=== PATIENT | male | born 1930 | race Caucasian/White ===

== ENCOUNTER 2016-09-04 14:37 | Emergency (ER) | payer MEDICARE ==
[~2016-09-04] VITALS: Ht 167.6 cm; Wt 74.4 kg
[2016-09-04 15:01] VITALS: BP 187/95
== END 2016-09-04 16:41 | disposition home or self-care (01) ==
LOC: ER 14:41
DX: S40.812A Abrasion of left upper arm, initial encounter (principal); I10 Essential (primary) hypertension; I45.9 Conduction disorder, unspecified; C41.9 Malignant neoplasm of bone and articular cartilage, unspecified; W18.30XA Fall on same level, unspecified, initial encounter; Y93.89 Activity, other specified; Y92.89 Other specified places as the place of occurrence of the external cause; Y99.8 Other external cause status
CPT/HCPCS: 99281; A4606; Z7502; Z7610

== ENCOUNTER 2016-09-14 13:26 | Outpatient (CLI) | payer MEDICARE ==
[~2016-09-14] VITALS: Ht 167.6 cm; Wt 74.4 kg
[2016-09-14 13:47] VITALS: BP_SYST 140; BP_SYST 148; BP_DIAS 70
[2016-09-14 15:19] LABS: BASOPHILS # (AUTO) 0.1 /CMM (0.0-0.2); BASOPHILS % (AUTO) 1.4 % (0.0-2.0); DIFF TOTAL % 100 %; EOSINOPHILS # (AUTO) 0.1 /CMM (0.0-0.7); EOSINOPHILS % (AUTO) 2.3 % (0.0-6.0); HEMATOCRIT 41 % (39-51); HEMOGLOBIN 13.3 g/dL (13.5-17.5); LYMPHOCYTES # (AUTO) 1.4 /CMM (0.8-4.8); LYMPHOCYTES % (AUTO) 35.3 % (20.0-44.0); MEAN CORPUSCULAR HEMOGLOBIN 30 PG (26.0-33.0); MEAN CORPUSCULAR HGB CONC 33 g/dl (31.0-36.0); MEAN CORPUSCULAR VOLUME 91 fL (80-96); MONOCYTES # (AUTO) 0.5 /CMM (0.1-1.30); MONOCYTES % (AUTO) 11.7 % (2.0-12.0); NEUTROPHILS % (AUTO) 49.3 % (43.0-81.0); PLATELET COUNT (AUTO) 268 /CMM (150-450); RED BLOOD CELL COUNT(AUTO) 4.47 MIL/uL (4.5-6.0)
[2016-09-14 15:54] LABS: ALBUMIN 4.3 g/dL (3.4-5.0); BILIRUBIN,TOTAL 0.3 mg/dL (0.2-1.0); CALCIUM, SERUM 9.3 mg/dL (8.5-10.1); CREATININE 1.2 mg/dL (0.6-1.3); POTASSIUM 4.8 mmol/L (3.5-5.1); THYROID STIMULATING HORMONE 3.134 uIU/mL (0.358-3.74)
== END 2016-09-14 23:59 | disposition home or self-care (01) ==
LOC: CSC 13:26
PROVIDERS: ATTEND Internal Medicine
DX: R07.9 Chest pain, unspecified (principal); Z74.09 Other reduced mobility
CPT/HCPCS: 36415; 80048; 80053; 82607; 84443 ×2; 85025 ×2; G0463

== ENCOUNTER 2016-09-18 14:15 | Outpatient (CLI) | payer MEDICARE | END 2016-09-18 23:59 | disposition home or self-care (01) | LOC: WOU 14:15 | PROVIDERS: ATTEND Podiatrist Foot & Ankle Surgery | DX: L60.3 Nail dystrophy (principal); L60.0 Ingrowing nail; R60.0 Localized edema | CPT/HCPCS: A6402; G0463 ==

== ENCOUNTER 2016-09-19 10:24 | Outpatient (CLI) | payer MEDICARE | END 2016-09-19 23:59 | disposition home or self-care (01) | LOC: RAD 10:24 | PROVIDERS: ATTEND Internal Medicine | DX: R07.81 Pleurodynia (principal) | CPT/HCPCS: 71020-TC ==

== ENCOUNTER 2016-09-28 14:02 | Outpatient (CLI) | payer MEDICARE ==
[~2016-09-28] VITALS: Ht 168.9 cm; Wt 73.0 kg
[2016-09-28 14:05] VITALS: BP_SYST 158; BP_SYST 159; BP_DIAS 71; BP_DIAS 80
== END 2016-09-28 23:59 | disposition home or self-care (01) ==
LOC: CSC 14:02
PROVIDERS: ATTEND Internal Medicine
DX: R41.3 Other amnesia (principal); Z87.891 Personal history of nicotine dependence; R07.81 Pleurodynia; Z91.14 Patient's other noncompliance with medication regimen; L21.9 Seborrheic dermatitis, unspecified; L57.0 Actinic keratosis; B35.1 Tinea unguium; I25.10 Atherosclerotic heart disease of native coronary artery without angina pectoris; Z98.61 Coronary angioplasty status; E78.5 Hyperlipidemia, unspecified; G62.9 Polyneuropathy, unspecified; N39.41 Urge incontinence; M19.90 Unspecified osteoarthritis, unspecified site; I10 Essential (primary) hypertension; H54.2 Low vision, both eyes; Z91.81 History of falling; B02.9 Zoster without complications
CPT/HCPCS: 80048; 80061; 83036; 83540; 85025; G0463

== ENCOUNTER 2016-10-03 08:51 | Outpatient (CLI) | payer MEDICARE | END 2016-10-03 23:59 | disposition home or self-care (01) | LOC: US 08:51 | PROVIDERS: ATTEND Internal Medicine | DX: R10.11 Right upper quadrant pain (principal) | CPT/HCPCS: 76700-TC ==

== ENCOUNTER 2016-10-12 13:41 | Outpatient (CLI) | payer MEDICARE ==
[~2016-10-12] VITALS: Ht 168.9 cm; Wt 73.9 kg
[2016-10-12 13:51] VITALS: BP_SYST 162; BP_SYST 173; BP_DIAS 86; BP_DIAS 98
== END 2016-10-12 23:59 | disposition home or self-care (01) ==
LOC: CSC 13:41
PROVIDERS: ATTEND Internal Medicine
DX: F01.50 Vascular dementia, unspecified severity, without behavioral disturbance, psychotic disturbance, mood disturbance, and anxiety (principal); Z91.81 History of falling; N39.41 Urge incontinence; R35.1 Nocturia; H26.9 Unspecified cataract; I10 Essential (primary) hypertension; B02.9 Zoster without complications; M19.90 Unspecified osteoarthritis, unspecified site; G62.9 Polyneuropathy, unspecified; I45.9 Conduction disorder, unspecified; E78.5 Hyperlipidemia, unspecified; R01.1 Cardiac murmur, unspecified; I25.10 Atherosclerotic heart disease of native coronary artery without angina pectoris; Z98.61 Coronary angioplasty status; B35.1 Tinea unguium; L57.0 Actinic keratosis; L21.9 Seborrheic dermatitis, unspecified; R07.81 Pleurodynia; R10.9 Unspecified abdominal pain; Z91.128 Patient's intentional underdosing of medication regimen for other reason
CPT/HCPCS: G0463

== ENCOUNTER 2017-12-27 15:10 | Inpatient (IN) | payer MEDICARE ==
[~2017-12-27] VITALS: Ht 160 cm; Wt 76.7 kg
--- NOTE | 2017-12-27 15:10 | NUR ---
JANETTE FROM [facility] OAU=[id number]; CR=14.7; K=6.2 MZ=[id number]; REFUSAL TO EAT. PLACED ON MONITOR.AWAITING MD ORDER
[2017-12-27 15:58] LABS: BASOPHILS % (AUTO) 0.4 % (0.0-2.0); EOSINOPHILS % (AUTO) 6.3 % (0.0-6.0); HEMATOCRIT 28 % (39-51); HEMOGLOBIN 9.5 g/dL (13.5-17.5); LYMPHOCYTES # (AUTO) 1.4 /CMM (0.8-4.8); MEAN CORPUSCULAR HGB CONC 34 g/dl (31.0-36.0); MEAN CORPUSCULAR VOLUME 92 fL (80-96); MONOCYTES # (AUTO) 0.4 /CMM (0.1-1.30); NEUTROPHILS # (AUTO) 6.5 /CMM (1.8-8.9); NEUTROPHILS % (AUTO) 72.3 % (43.0-81.0); PLATELET COUNT (AUTO) 168 /CMM (150-450); RED BLOOD CELL COUNT(AUTO) 3.08 MIL/uL (4.5-6.0)
[2017-12-27] MEDS ORDERED: IV NS 0.9% 1,000 ML BAG IV ONE (16:00)
[2017-12-27 16:11] LABS: CALCIUM, SERUM 8.4 mg/dL (8.5-10.1); CARBON DIOXIDE 18 mmol/L (21-32); CHLORIDE 107 mmol/L (98-107); GLUCOSE 138 mg/dL (74-106); SODIUM SERUM 142 mmol/L (136-145)
[2017-12-27 16:32] LABS: CREATININE 20.1 mg/dL (0.6-1.3); UREA NITROGEN, BLOOD 142 mg/dL (7-18)
[2017-12-27 16:33] LABS: POTASSIUM 6.4 mmol/L (3.5-5.1)
[2017-12-27] MEDS ORDERED: QUET25TA PO (16:44)
[2017-12-27] MEDS ORDERED: AMIO100T4 PO (16:44)
[2017-12-27] MEDS ORDERED: ATOR40TA PO (16:56)
[2017-12-27] MEDS ORDERED: ACET325T53 MC (16:56)
[2017-12-27] MEDS ORDERED: ASCO500T9 PO (16:56)
[2017-12-27] MEDS ORDERED: ASPI-992 PO (16:56)
[2017-12-27] MEDS ORDERED: CLON0.5T12 PO (16:56)
[2017-12-27] MEDS ORDERED: TEMA15CA PO (16:56)
[2017-12-27] MEDS ORDERED: MULT1TAB73 PO (16:56)
[2017-12-27] MEDS ORDERED: MAGN400O21 PO (16:56)
[2017-12-27] MEDS ORDERED: LOSA25TA13 PO (16:56)
[2017-12-27] MEDS ORDERED: SODIUM POLYSTYRENE SULFONATE 15 G/60 ML BOTTLE RC ONE (17:00)
[2017-12-27] MEDS ORDERED: IV NS 0.9% 1,000 ML IV ONE (17:00)
[2017-12-27] MEDS ORDERED: SODIUM POLYSTYRENE SULFONATE 15 G/60 ML BOTTLE ONE (17:11)
--- NOTE | 2017-12-27 17:25 | NUR ---
GAVE REPORT TO ADONIS LINSUDON FAILURE TO THRIVE DR THAO ADMITTING
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
[2017-12-27 18:00] VITALS: BP 102/57
[2017-12-27] MEDS ORDERED: ONDANSETRON HCL/PF 4 MG/2 ML VIAL IVP PRN (18:00)
[2017-12-27] MEDS ORDERED: MAGNESIUM HYDROXIDE 30 ML UDC PO PRN (18:00)
[2017-12-27] MEDS ORDERED: ACETAMINOPHEN 325 MG TABLET PO PRN (18:00)
[2017-12-27] MEDS ORDERED: MAG HYDROX/AL HYDROX/SIMETH 30 ML UDC PO PRN (18:00)
[2017-12-27] MEDS ORDERED: HYDROCODONE/APAP 5/325MG 1 EACH TABLET PO PRN (18:00)
[2017-12-27] MEDS ORDERED: Z GUARD REMEDY 2 OZ OINT TP PRN (18:00)
[2017-12-27] MEDS: IV D5/0.45 NACL 1,000 ML IV PRN (18:24)
--- NOTE | 2017-12-27 19:41 | NUR ---
RN OPENING NOTES RECEIVED REPORT FROM DAYSHIFT RN ADONIS. FOUND Pt ASLEEP, RESTING IN BED. NO S/S OF ACUTE DISTRESS OR SOB NOTED. RESPIRATIONS EVEN AND UNLABORED. Pt IS A/OX1, CONFUSED, COMBATIVE AT TIMES. IV ACCESS ON RAC #20G, WITH IVF D5 1/2NS @150ML/HR. SAFETY MEASURES IN PLACE. BED LOW, LOCKED, HOB ELEVATED, SIDE RAILS UP, CALL LIGHT AND BEDSIDE TABLE WITHIN REACH. WILL CONTINUE TO MONITOR Pt THROUGHOUT THE NIGHT FOR SAFETY.
[2017-12-27 20:00] VITALS: BP 99/57
[2017-12-27 20:36] VITALS: BP 99/57
[2017-12-28] MEDS: IV D5/0.45 NACL 1,000 ML IV PRN ×3 (01:13→15:22)
[2017-12-28] MEDS: MORPHINE SULFATE INJ 4 MG/ML DISP.SYRIN IV PRN (03:06)
--- NOTE | 2017-12-28 06:50 | NUR ---
RN CLOSING NOTES NO SIGNIFICANT CHANGES IN Pt's CONDITION. Pt IS ASLEEP IN BED, WITH EQUAL CHEST RISE AND FALL; REMAINS STABLE AT THIS TIME. NO S/S OF ACUTE DISTRESS OR SOB NOTED DURING THE NIGHT. ALL NEEDS MET AND ATTENDED TO. SAFETY MEASURES IN PLACE. WILL ENDORSE TO DAYSHIFT RN FOR Pt's YURI.
[2017-12-28 07:14] LABS: BASOPHILS % (AUTO) 0.4 % (0.0-2.0); EOSINOPHILS % (AUTO) 8.5 % (0.0-6.0); HEMATOCRIT 27 % (39-51); HEMOGLOBIN 8.8 g/dL (13.5-17.5); LYMPHOCYTES # (AUTO) 1.2 /CMM (0.8-4.8); LYMPHOCYTES % (AUTO) 15.8 % (20.0-44.0); MEAN CORPUSCULAR HGB CONC 33 g/dl (31.0-36.0); MEAN CORPUSCULAR VOLUME 93 fL (80-96); MONOCYTES # (AUTO) 0.4 /CMM (0.1-1.30); MONOCYTES % (AUTO) 5.7 % (2.0-12.0); NEUTROPHILS # (AUTO) 5.3 /CMM (1.8-8.9); NEUTROPHILS % (AUTO) 69.6 % (43.0-81.0); PLATELET COUNT (AUTO) 141 /CMM (150-450); RDW COEFFICIENT OF VARIATION 14.9 (11.5-15.0); RED BLOOD CELL COUNT(AUTO) 2.89 MIL/uL (4.5-6.0); WHITE BLOOD COUNT (AUTO) 7.7 K/uL (4.3-11.0)
[2017-12-28 07:21] LABS: CALCIUM, SERUM 7.4 mg/dL (8.5-10.1); CARBON DIOXIDE 15 mmol/L (21-32); CHLORIDE 108 mmol/L (98-107); GLUCOSE 141 mg/dL (74-106); MAGNESIUM 2.3 mg/dL (1.8-2.4); POTASSIUM 5.8 mmol/L (3.5-5.1); SODIUM SERUM 143 mmol/L (136-145)
[2017-12-28 07:23] LABS: CREATININE 19.7 mg/dL (0.6-1.3); UREA NITROGEN, BLOOD 136 mg/dL (7-18)
[2017-12-28 07:39] LABS: PHOSPHORUS 8.1 mg/dL (2.5-4.9)
--- NOTE | 2017-12-28 07:40 | NUR ---
M/S RN - Assessment Patient awake, alert to self, on 2lpm via NC, no s/s of pain, afebrile, not in any form of distress, admitted for Renal Failure and Dehydration. Patient currently on IVF D5 1/2 NS at 150 ml/hr infusing well on the RAC with no signs of infiltration. Labs reviewed, phosphorus 8.1, relayed to Md with no new order. Skin assessment done, wound care consult obtained. Patient turned and repositioned q2h for skin management. Patient's code status is DNR/DNI, awaiting for hospice evaluation. Will continue with current medical management.
[2017-12-28 08:00] VITALS: BP 123/59
--- NOTE | 2017-12-28 10:30 | NUR ---
M/S RN - POL Called [facility], spoke to JOEL Navarro to obtain a copy of the POLST. Copy received and placed in the chart.
--- NOTE | 2017-12-28 11:41 | NUR ---
WOUND CARE CONSULT: PT PRESENTS WITH BRUISING TO ARMS, SKIN TEAR TO RT ELBOW AREA AND MULTIPLE LESIONS TO LOWER BACK AND BUTTOCKS, PRESENT ON ADMISSION. SOME LESIONS ARE RAISED AND FLUID FILLED, OTHERS RED, NO DRAINAGE NOTED. DEFER TO MD FOR LESIONS. RECOMMENDATIONS MADE FOR SKIN PROTECTION AND DISCUSSED WITH NURSING STAFF. PT ON FAM ISOFLEX LOW AIRLOSS BED. WILL SEE PRN. MD IN AGREEMENT WITH PLAN OF CARE. CURRENT DEREK SCORE IS 12. Addendum: 12/28/17 at 1145 by TWYLA SCHAFFER WNDNU Amended: Links added.
[2017-12-28 16:00] VITALS: BP 121/68
--- NOTE | 2017-12-28 18:24 | NUR ---
M/S RN - Notes No significant change in condition seen. Patient awake and alert to self, no s/s of pain, not in any form of distress. IVF D5 1/2NS at 150 ml/hr infusing well on the RAC with no s/s of infiltration. All needs attended and met. No fall/injury this shift. Will continue with current medical management.
--- NOTE | 2017-12-28 19:45 | NUR ---
RN OPENING NOTES RECEIVED REPORT FROM DAYSHIFT JOEL VACA. FOUND Pt RESTING IN BED. NO S/S OF ACUTE DISTRESS OR SOB NOTED. SAFETY MEASURES IN PLACE. BED LOW, LOCKED, HOB ELEVATED, SIDE RAILS UP, CALL LIGHT AND BEDSIDE TABLE WITHIN REACH. WILL CONTINUE TO MONITOR Pt THROUGHOUT THE NIGHT FOR SAFETY.
[2017-12-28 20:00] VITALS: BP 146/68
--- NOTE | 2017-12-28 20:52 | NUR ---
RN NOTES ENDORSEMENT GIVEN TO JOEL FISHMAN FOR Pt'S YURI.
[2017-12-28] MEDS: NEOMY SULF/BACITRAC ZN/POLY 15 GM TUBE TP SCH (23:08)
[2017-12-29] MEDS: IV D5/0.45 NACL 1,000 ML IV PRN ×2 (02:36→09:22)
[2017-12-29 06:41] LABS: BASOPHILS % (AUTO) 0.4 % (0.0-2.0); EOSINOPHILS % (AUTO) 6.5 % (0.0-6.0); HEMATOCRIT 26 % (39-51); HEMOGLOBIN 8.6 g/dL (13.5-17.5); LYMPHOCYTES # (AUTO) 1.1 /CMM (0.8-4.8); LYMPHOCYTES % (AUTO) 15.4 % (20.0-44.0); MEAN CORPUSCULAR HGB CONC 33 g/dl (31.0-36.0); MEAN CORPUSCULAR VOLUME 92 fL (80-96); MONOCYTES # (AUTO) 0.4 /CMM (0.1-1.30); NEUTROPHILS # (AUTO) 5.1 /CMM (1.8-8.9); NEUTROPHILS % (AUTO) 71.7 % (43.0-81.0); PLATELET COUNT (AUTO) 139 /CMM (150-450); RDW COEFFICIENT OF VARIATION 15.6 (11.5-15.0); WHITE BLOOD COUNT (AUTO) 7.2 K/uL (4.3-11.0)
--- NOTE | 2017-12-29 07:02 | NUR ---
MS/RN CLOSING NOTES PATIENT IN BED, ABLE TO SLEEP DURING THE NIGHT, RESTING COMFORTABLY IN BED, SKIN WARM TO TOUCH, BED IN LOCK POSITION, WILL CONTINUE TO MONITOR.
--- NOTE | 2017-12-29 07:30 | NUR ---
RN MS NOTES PT IN BED, ASLEEP, EASY TO AROUSE, NO SIGN OF PAIN, NO FACIAL GRIMACING, NOT IN DISTRESS, CALL LIGHT WITHIN REACH, KEPT WARM AND COMFORTABLE.
[2017-12-29 07:39] LABS: CALCIUM, SERUM 7.5 mg/dL (8.5-10.1); CARBON DIOXIDE 16 mmol/L (21-32); CHLORIDE 106 mmol/L (98-107); GLUCOSE 133 mg/dL (74-106); MAGNESIUM 2.1 mg/dL (1.8-2.4); POTASSIUM 5.3 mmol/L (3.5-5.1); SODIUM SERUM 141 mmol/L (136-145); UREA NITROGEN, BLOOD 135 mg/dL (7-18)
[2017-12-29 07:40] LABS: CREATININE 19.9 mg/dL (0.6-1.3)
[2017-12-29 07:43] LABS: PHOSPHORUS 8.6 mg/dL (2.5-4.9)
[2017-12-29 08:00] VITALS: BP 136/89
[2017-12-29] MEDS: NEOMY SULF/BACITRAC ZN/POLY 15 GM TUBE TP SCH (09:20)
--- NOTE | 2017-12-29 11:50 | NUR ---
RN MS NOTES PT IN BED, ASLEEP, EASY TO AROUSE, ALERT TO SELF, WITH CONFUSION, ASSISTED WITH ADL'S AND REPOSITIONING, TURNED AND REPOSITIONED Q2 HOURS, KEPT COMFORTABLE.
[2017-12-29 16:00] VITALS: BP 130/54
--- NOTE | 2017-12-29 19:00 | NUR ---
RN MS NOTES PT IN BED, ASLEEP, EASY TO AROUSE, NOT IN DISTRESS, ON O2 AT 2LPM VIA NASAL CANULA, NOTED WITH URINE RETENTION, BLADDER SCAN DONE WITH 900 ML OR URINE, DR. THAO INFORMED, ORDERED TO INSERT HAGAN, SEEN BY DR. DIANE, NEW ORDERS GIVEN, PM CARE RENDERED, IV FLUIDS INFUSING WELL, TURNED AND REPOSITIONED Q2 HOURS, KEPT CLEAN, DRY AND COMFORTABLE.
--- NOTE | 2017-12-29 19:00 | NUR ---
CUT OUT WORKER NOTES RECEIVE PT IN BED A/O X 1, CONFUSED, NO S/S OF DISTRESS, SAFETY MEASURES IN PLACE, CALL LIGHT WITHIN REACH, WILL CONTINUE TO MONITOR
[2017-12-29 19:13] LABS: APPEARANCE,URINE CLEAR (CLEAR); BILIRUBIN,URINE NEGATIVE (NEGATIVE); BLOOD, URINE 3+ Ery/uL (NEGATIVE); COLOR,URINE DARK YELLO (YELLOW); KETONES,URINE NEGATIVE (NEGATIVE); LEUKOCYTE ESTERASE ,URINE NEGATIVE (NEGATIVE); NITRITE, URINE NEGATIVE (NEGATIVE); PROTEIN,URINE NEGATIVE (NEGATIVE); UGLUCOSE NEGATIVE (NEGATIVE); UROBILINOGEN,URINE 0.2 EU/dL (0.2)
[2017-12-29 19:30] LABS: BACTERIA,URINE None seen /HPF (None Seen); RBC,URINE TOO NUMEROUS TO COUN /HPF (0-2); SQUAMOUS EPITHELIAL CELL,UR Few /HPF (None Seen); WBC,URINE 0-2 /HPF (0-3)
[2017-12-29 20:00] VITALS: BP 148/72
[2017-12-29] MEDS: IV NS 0.9% 1,000 ML IV PRN (20:33)
--- NOTE | 2017-12-29 22:10 | NUR ---
MS RN NOTES PAGED HOSPITALIST SPOKE TO DR. NANCY PARKER SKATE BOARDER MADE AWARE PT NOTED MILD PINKISH RED URINE NNO AT THIS TIME GOOD F/C CARE PROVIDED Addendum: 12/30/17 at 0042 by KWAKU CASTELAN RN ADDENDUM: CRISTOPHER CROW AT 0700
[2017-12-30] MEDS: IV NS 0.9% 1,000 ML IV PRN ×2 (01:34→07:04)
--- NOTE | 2017-12-30 06:35 | NUR ---
MS RN NOTES ASLEEP AND EASILY AWAKEN, HOB ELEVATED, STABLE NO S/S OF ACUTE DISTRESS OR SOB NOTED. 2LPM NC 02 SAT 98% RESPIRATIONS EVEN AND UNLABORED. NEEDS ATTENDED AND ANTICIPATED; AFEBRILE, KEPT CLEAN AND DRY AND COMFORTABLE. NURSING CARE RENDERED, ASSISTED REPOSITION EVERY 2 HOURS, BLE OFFLOADED. F/C DRAINING OJ YELLOW VIA GRAVITY WITH NO SEDIMENTS NO HEMATURIA NO CLOUDINESS. OCCASIONAL PINKISH URINE NOTED. GOOD F/C CARE PROVIDED. SAFETY MEASURES IN PLACE. BED LOW LOCKED SIDE RAILS UP, CALL LIGHT AND BEDSIDE TABLE WITHIN REACH. ENDORSE TO THE NEXT SHIFT POC.
[2017-12-30 06:57] LABS: BASOPHILS % (AUTO) 0.5 % (0.0-2.0); HEMATOCRIT 25 % (39-51); HEMOGLOBIN 8.2 g/dL (13.5-17.5); LYMPHOCYTES # (AUTO) 0.9 /CMM (0.8-4.8); LYMPHOCYTES % (AUTO) 18.4 % (20.0-44.0); MEAN CORPUSCULAR HGB CONC 33 g/dl (31.0-36.0); MEAN CORPUSCULAR VOLUME 92 fL (80-96); MONOCYTES # (AUTO) 0.4 /CMM (0.1-1.30); MONOCYTES % (AUTO) 7.5 % (2.0-12.0); NEUTROPHILS # (AUTO) 3.2 /CMM (1.8-8.9); NEUTROPHILS % (AUTO) 63.6 % (43.0-81.0); PLATELET COUNT (AUTO) 153 /CMM (150-450); RDW COEFFICIENT OF VARIATION 15.5 (11.5-15.0); RED BLOOD CELL COUNT(AUTO) 2.69 MIL/uL (4.5-6.0); WHITE BLOOD COUNT (AUTO) 5.1 K/uL (4.3-11.0)
--- NOTE | 2017-12-30 07:30 | NUR ---
RN MS NOTES PT IN BED, ASLEEP, EASILY AWAKENS, ALERT TO SELF, DENIES PAIN, RESPIRATIONS NORMAL, IV FLUIDS INFUSING WELL, CALL LIGHT WITHIN REACH, F/C DRAINING WELL WITH CLEAR OJ AND OCCASIONAL PINKISH URINE, ASSISTED IN TURNING AND REPOSITIONING, KEPT WARM AND COMFORTABLE IN BED.
[2017-12-30 07:48] LABS: ALANINE AMINOTRANSFERASE 19 U/L (12-78); ALBUMIN 1.9 g/dL (3.4-5.0); ALKALINE PHOSPHATASE 57 U/L (46-116); ASPARTATE AMINOTRANSFERASE 21 U/L (15-37); BILIRUBIN,TOTAL 0.3 mg/dL (0.2-1.0); CALCIUM, SERUM 7.7 mg/dL (8.5-10.1); CARBON DIOXIDE 17 mmol/L (21-32); CHLORIDE 115 mmol/L (98-107); GLUCOSE 90 mg/dL (74-106); MAGNESIUM 3.3 mg/dL (1.8-2.4); PHOSPHORUS 4.1 mg/dL (2.5-4.9); SODIUM SERUM 146 mmol/L (136-145); TOTAL PROTEIN, SERUM 5.5 g/dL (6.4-8.2); UREA NITROGEN, BLOOD 75 mg/dL (7-18)
[2017-12-30 08:00] VITALS: BP 134/74
[2017-12-30] MEDS: OLANZAPINE 5 MG TABLET PO SCH ×2 (09:00→09:41)
[2017-12-30] MEDS: NEOMY SULF/BACITRAC ZN/POLY 15 GM TUBE TP SCH (09:41)
--- NOTE | 2017-12-30 13:05 | NUR ---
RN MS NOTES PT IN BED, AWAKE, ALERT TO SELF, MORE AWAKE AND ALERT TODAY, NO SIGN OF PAIN OR DISTRESS, IV FLUIDS INFUSING WELL, SEEN BY DR. DIANE, TURNED AND REPOSITIONED Q2 HOURS, SKIN TREATMENTS DONE, KEPT CLEAN AND DRY, F/C INTACT AND DRAINING WELL WITH OJ AND PINKISH URINE, KEPT COMFORTABLE.
[2017-12-30 16:00] VITALS: BP 169/71
[2017-12-30] MEDS: CEFTRIAXONE 1 G in IV D5W 50 ML IV SCH (16:27)
[2017-12-30] MEDS: Sodium Bicarbonate 100 MEQ in IV D5W 1,000 ML IV PRN (16:27)
--- NOTE | 2017-12-30 18:46 | NUR ---
RN MS NOTES PT IN BED, AWAKE, ALERT TO SELF, WITH CONFUSION, NO SIGN OF PAIN OR DISTRESS, CALL LIGHT WITHIN REACH, IV FLUIDS INFUSING WELL, PM MEDS GIVEN ORDERED, PT SEEN BY DR. THAO, PT MORE ALERT AND VERBALLY RESPONSIVE NOW, PM CARE RENDERED, ALL NEEDS ATTENDED.
[2017-12-30] MEDS ORDERED: hydrALAZINE HCL 25 MG TABLET PO PRN (19:00)
--- NOTE | 2017-12-30 19:00 | NUR ---
RN MS NOTES PER FLORINA LEE TO CONTINUE HOME MEDS EXCEPT LOSARTAN, NEW ORDER FOR HYDRALAZINE PRN GIVEN.
--- NOTE | 2017-12-30 19:30 | NUR ---
RECEIVED PATIENT IN BED AWAKE, AO X 1, GARBLED SPEECH. NO ACUTE DISTRESS NOTED. MONITORED FOR PAIN. IV SITE PATENT, INTACT; IVF INFUSING ORDERED. HAGAN CATH PATENT, INTACT; DRAINING YELLOWISH OJ URINE. ON LOW BED WITH BILATERAL UPPER SIDE RAILS UP. CALL BUENO WITHIN EASY REACH. WILL CONTINUE TO MONITOR.
[2017-12-30 20:00] VITALS: BP 140/77
[2017-12-30] MEDS: MORPHINE SULFATE INJ 4 MG/ML DISP.SYRIN IV PRN (20:38)
--- NOTE | 2017-12-30 20:48 | NUR ---
PATIENT VERY RESTLESS, AGITATED; TRYING TO PULL ON IV AND HAGAN CATHETER. SAFETY REMINDERS AND OTHER NONPHARMACOLOGICAL INTERVENTIONS INEFFECTIVE. DR. NANCY COATES MADE AWARE WITH NEW ORDER FOR ATIVAN 2 MG PO X 1 PRN, NOTED AND CARRIED OUT. WILL CONTINUE TO MONITOR PATIENT.
[2017-12-30] MEDS: LORAZEPAM 1 MG TABLET PO PRN ×2 (22:10→22:17)
--- NOTE | 2017-12-30 22:17 | NUR ---
PATIENT REPEATEDLY REFUSED ATIVAN PO. PATIENT STILL VERY AGITATED AND PULLING ON IV AND HAGAN CATH. DR. NANCY COATES NOTIFIED WITH NEW ORDER FOR ATIVAN 1 MG IM X 1, NOTED AND CARRIED OUT. ATIVAN PILLS WASTED AND DOCUMENTED IN OMNICELL.
[2017-12-30] MEDS ORDERED: LORAZEPAM INJ 2 MG/ML VIAL IM PRN (22:30)
[2017-12-31] MEDS ORDERED: SODIUM BICARBONATE SYR 50 MEQ/50 ML DISP.SYRIN ONE ×2 (03:19→03:21)
[2017-12-31] MEDS: Sodium Bicarbonate 100 MEQ in IV D5W 1,000 ML IV PRN (03:23)
--- NOTE | 2017-12-31 07:00 | NUR ---
PATIENT ASLEEP, EASILY AROUSABLE. RESPIRATIONS EVEN. NO SIGNS OF PAIN NOTED. NEEDS ATTENDED. SAFETY PRECAUTIONS AND COMFORT MEASURES IN PLACE. WILL GIVE REPORT TO DAY SHIFT FOR CONTINUITY OF CARE.
[2017-12-31 07:06] LABS: BASOPHILS % (AUTO) 0.4 % (0.0-2.0); EOSINOPHILS % (AUTO) 9.2 % (0.0-6.0); HEMATOCRIT 26 % (39-51); HEMOGLOBIN 8.7 g/dL (13.5-17.5); LYMPHOCYTES # (AUTO) 1.3 /CMM (0.8-4.8); MEAN CORPUSCULAR HGB CONC 34 g/dl (31.0-36.0); MEAN CORPUSCULAR VOLUME 92 fL (80-96); MONOCYTES # (AUTO) 0.7 /CMM (0.1-1.30); MONOCYTES % (AUTO) 10.8 % (2.0-12.0); NEUTROPHILS # (AUTO) 3.5 /CMM (1.8-8.9); NEUTROPHILS % (AUTO) 57.6 % (43.0-81.0); PLATELET COUNT (AUTO) 186 /CMM (150-450); RDW COEFFICIENT OF VARIATION 15.6 (11.5-15.0); RED BLOOD CELL COUNT(AUTO) 2.79 MIL/uL (4.5-6.0); WHITE BLOOD COUNT (AUTO) 6.1 K/uL (4.3-11.0)
[2017-12-31 07:22] LABS: ALANINE AMINOTRANSFERASE 17 U/L (12-78); ALKALINE PHOSPHATASE 57 U/L (46-116); ASPARTATE AMINOTRANSFERASE 21 U/L (15-37); BILIRUBIN,TOTAL 0.3 mg/dL (0.2-1.0); CALCIUM, SERUM 7.8 mg/dL (8.5-10.1); CARBON DIOXIDE 30 mmol/L (21-32); CHLORIDE 115 mmol/L (98-107); GLUCOSE 133 mg/dL (74-106); MAGNESIUM 1.6 mg/dL (1.8-2.4); PHOSPHORUS 2.1 mg/dL (2.5-4.9); POTASSIUM 4.2 mmol/L (3.5-5.1); SODIUM SERUM 148 mmol/L (136-145); TOTAL PROTEIN, SERUM 5.9 g/dL (6.4-8.2); UREA NITROGEN, BLOOD 31 mg/dL (7-18)
[2017-12-31 08:00] VITALS: BP 158/84
--- NOTE | 2017-12-31 08:00 | NUR ---
RN NOTES RECEIVED PATIENT IN THE BED A/A/O X1, BUT UNDERSTAND CONCEPTS. ENCOURAGED TO EXPRESS FEELINGS AND CONCERNS. PATIENT ON 02- 2L NC, COUGHING, NO SOB AT THIS TIME. ASSIST EATING, SCHEDULED MEDICATION ADMINISTERED BY CRUSHED AND MIXED WITH APPLE SAUCE. PATIENT ON F/C DRAIN YELLOW OUTPUT. IV LINE ON LEFT WRIST INFUSING D5W WITH NA BICARBONATE AT 100 ML/HR INTACT. PATIENT HAS EDEMA ON LOWER EXTREMITAS, KEEP ELEVATED USING PILLOWS. NEEDS ATTENDED AND ANTICIPATED, CALL LIGHT WITHIN TO REACH. CONTINUED MONITORING.
[2017-12-31] MEDS ORDERED: TEMAZEPAM 7.5 MG CAPSULE PO PRN (08:30)
[2017-12-31] MEDS ORDERED: MAGNESIUM HYDROXIDE 30 ML UDC PO PRN (08:30)
[2017-12-31] MEDS ORDERED: ACETAMINOPHEN 325 MG TABLET MC SCH (08:30)
[2017-12-31] MEDS ORDERED: QUETIAPINE FUMARATE 25 MG TABLET PO SCH (09:00)
[2017-12-31] MEDS ORDERED: MULTIVITAMINS,THERAGRAN 1 UDTAB TABLET PO SCH (09:00)
[2017-12-31] MEDS: OLANZAPINE 5 MG TABLET PO SCH (09:48)
[2017-12-31] MEDS: ASPIRIN 325 MG TABLET PO SCH (09:48)
[2017-12-31] MEDS: ASCORBIC ACID 500 MG TABLET PO SCH (09:48)
[2017-12-31] MEDS: NEOMY SULF/BACITRAC ZN/POLY 15 GM TUBE TP SCH (09:51)
[2017-12-31] MEDS: AMIODARONE HCL 200 MG TABLET PO SCH (09:51)
--- NOTE | 2017-12-31 10:12 | NUR ---
RN NOTES HOB KEEP ELEVATED, V/S TAKEN STABLE, ASSIST TURN AND REPOSTION Q 2 HR. CALL LIGHT WITHIN TO REACH, CONTINUED MONITORING.
[2017-12-31] MEDS: MULTIVIT, IRON, MIN NO. 8, FA 1 TAB PO SCH (10:27)
[2017-12-31] MEDS: Magnesium 1GM/D5W 100ML PREMIX 100 ML IV SCH ×2 (10:30→11:34)
[2017-12-31] MEDS ORDERED: Potassium Chloride 40 MEQ in IV D5W 1,000 ML IV PRN (10:30)
[2017-12-31] MEDS: IV D5W 1,000 ML IV PRN (10:43)
[2017-12-31] MEDS ORDERED: NEUTRA PHOS 1 POWD.PACKET PO ONE (11:30)
[2017-12-31] MEDS: ENSURE ENLIVE CHOC 237 ML CAN PO SCH ×2 (12:00→17:00)
[2017-12-31] MEDS: Thiamine 100 MG in IV D5W 50 ML IV SCH (12:27)
[2017-12-31] MEDS: CEFTRIAXONE 1 G in IV D5W 50 ML IV SCH (15:32)
[2017-12-31 16:00] VITALS: BP 113/71
[2017-12-31] MEDS ORDERED: ATORVASTATIN 40 MG TABLET PO SCH (18:00)
[2017-12-31] MEDS: VENLAFAXINE XR 37.5 MG CAP.SR.24H PO SCH (18:00)
--- NOTE | 2017-12-31 18:30 | NUR ---
rn notes patient in the bed sleeping, arouse when called name or touched. patient aspiration precaution unable to administered scheduled medication, and dinner. patient on o2-2l NC. v/s stable. assist turn and reposition q 2 hr. needs attended and anticipated. f/c drain yellow output. infusing D5W at 100 ml/hr intact. endorsed oncoming nurse for mariaa.
--- NOTE | 2017-12-31 19:50 | NUR ---
MS RN NOTE: PATIENT RESTING IN BED, NO ACUTE DISTRESS NOTED. BREATHING EVEN AND UNLABORED, NO SOB NOTED. IV TO LEFT HAND IN PLACE, INFUSING D5W 100ML/HR. HAGAN CATHETER IN PLACE, EMPTY AT THIS TIME. BED LOCKED AND IN LOWEST POSITION, CALL LIGHT IN REACH. WILL CONTINUE TO MONITOR.
[2017-12-31 20:00] VITALS: BP 127/70
[2018-01-01] MEDS: clonazePAM 0.5 MG TABLET PO PRN ×2 (00:03→21:52)
[2018-01-01] MEDS: IV D5W 1,000 ML IV PRN ×2 (01:20→17:50)
--- NOTE | 2018-01-01 01:30 | NUR ---
MS RN NOTES PT NOTED WITH PULLING AND TUGGING HAGAN CATH AND RESULTED WITH BLOOD IN URINE. PT ALSO NOTED WITH DISTENDED ABDOMEN. BLADDER SCAN DONE WITH >999ML OF URINE. INSERTED NEW HAGAN CATH AND 1030CC OF URINE CAME OUT WITH BLOOD CLOTS. IRRIGATION DONE. PT APPEARS TO BE MORE RELAXED AND ABLE TO FALL ASLEEP.
--- NOTE | 2018-01-01 06:35 | NUR ---
MS RN CLOSING NOTES ALL DUE MEDS GIVEN, NEEDS MET AND ANTICIPATED. AWAKE AND RESPONSIVE. AFEBRILE, RESPIRATIONS ARE EVEN AND UNLABORED, NOT IN ANY ACUTE DISTRESS NOTED. NO C/O PAIN, SOB, N/V. IV SITE INTACT, NO INFILTRATION NOTED. DRESSING KEPT CLEAN AND DRY. HAGAN CATH IN PLACE, DRAINING WELL AND FREE OF KINKS. SAFETY MEASURES ARE IN PLACE. CALL LIGHT IS LEFT WITHIN REACH. WILL ENDORSE TO NEXT SHIFT FOR CONTINUITY OF CARE.
[2018-01-01 07:19] LABS: BASOPHILS % (AUTO) 0.4 % (0.0-2.0); EOSINOPHILS % (AUTO) 1.1 % (0.0-6.0); HEMATOCRIT 24 % (39-51); HEMOGLOBIN 7.9 g/dL (13.5-17.5); LYMPHOCYTES # (AUTO) 1.1 /CMM (0.8-4.8); LYMPHOCYTES % (AUTO) 14.6 % (20.0-44.0); MEAN CORPUSCULAR HGB CONC 33 g/dl (31.0-36.0); MEAN CORPUSCULAR VOLUME 91 fL (80-96); MONOCYTES # (AUTO) 0.6 /CMM (0.1-1.30); MONOCYTES % (AUTO) 7.3 % (2.0-12.0); NEUTROPHILS # (AUTO) 5.9 /CMM (1.8-8.9); NEUTROPHILS % (AUTO) 76.6 % (43.0-81.0); PLATELET COUNT (AUTO) 223 /CMM (150-450); RDW COEFFICIENT OF VARIATION 15.5 (11.5-15.0); RED BLOOD CELL COUNT(AUTO) 2.62 MIL/uL (4.5-6.0); WHITE BLOOD COUNT (AUTO) 7.7 K/uL (4.3-11.0)
[2018-01-01 07:24] LABS: CALCIUM, SERUM 7.6 mg/dL (8.5-10.1); CARBON DIOXIDE 27 mmol/L (21-32); CHLORIDE 109 mmol/L (98-107); CREATININE 1.3 mg/dL (0.6-1.3); GLUCOSE 146 mg/dL (74-106); PHOSPHORUS 1.9 mg/dL (2.5-4.9); POTASSIUM 3.9 mmol/L (3.5-5.1); SODIUM SERUM 143 mmol/L (136-145); UREA NITROGEN, BLOOD 18 mg/dL (7-18)
[2018-01-01 08:00] VITALS: BP 121/70
[2018-01-01] MEDS: ENSURE ENLIVE CHOC 237 ML CAN PO SCH ×3 (08:00→16:19)
[2018-01-01] MEDS ORDERED: OLANZAPINE 5 MG TABLET PO SCH (09:00)
[2018-01-01] MEDS: ASPIRIN 325 MG TABLET PO SCH (09:22)
[2018-01-01] MEDS: VENLAFAXINE XR 37.5 MG CAP.SR.24H PO SCH (09:23)
[2018-01-01] MEDS: ASCORBIC ACID 500 MG TABLET PO SCH (09:23)
[2018-01-01] MEDS: MULTIVIT, IRON, MIN NO. 8, FA 1 TAB PO SCH (09:24)
[2018-01-01] MEDS: NEOMY SULF/BACITRAC ZN/POLY 15 GM TUBE TP SCH (10:41)
[2018-01-01] MEDS: AMIODARONE HCL 200 MG TABLET PO SCH (10:41)
[2018-01-01] MEDS ORDERED: NEUTRA PHOS 1 POWD.PACKET PO ONE (11:30)
[2018-01-01 12:00] VITALS: BP 146/67
[2018-01-01] MEDS: Thiamine 100 MG in IV D5W 50 ML IV SCH (12:53)
--- NOTE | 2018-01-01 13:14 | NUR ---
PER DR ARGUETA, INSERT 3 WAY HAGAN CATHETER AND BEGIN BLADDER IRRIGATION TILL HEMATURIA RESOLVES
[2018-01-01] MEDS: OLANZAPINE 2.5 MG TABLET PO SCH ×2 (14:00→16:19)
--- NOTE | 2018-01-01 14:30 | NUR ---
PATIENT SPITTING OUT FOOD, UNABLE TO TAKE ZYPREXA SCHEDULED AT 1300. NO FACIAL GRIMACING NOTED
[2018-01-01] MEDS: CEFTRIAXONE 1 G in IV D5W 50 ML IV SCH (14:59)
[2018-01-01 16:00] VITALS: BP 137/80
--- NOTE | 2018-01-01 17:34 | NUR ---
HAGAN CATHETER: 3 WAY IRRIGATION HAGAN CATHETER INSERTED PER DR ARGUETA'S ORDERS, VIA ASEPTIC TECHNIQUE. DR ARGUETA NOTIFIED THAT URINE IS STILL BRIGHT RED AFTER IRRIGATION OF [address] ARGUETA, CONTINUE BLADDER IRRIGATION PATIENT CONTINOUSLY MONTIORED FOR RETENTION
--- NOTE | 2018-01-01 18:11 | NUR ---
BLADDER SCANNER INDICATING 55 ML
--- NOTE | 2018-01-01 19:30 | NUR ---
PATIENT RESTING IN BED. NONLABORED BREATHING NOTED ON ROOM AIR. NO FACIAL GRIMACING AT THE MOMENT. IV SITE ON RIGHT HAND [address] ARGUETA NOTIFIED THAT PATIENT REFUSING TO EAT. OFFERED SNACKS THROUGHOUT SHIFT, STILL REFUSING. ASPIRATION PRECAUTIONS IMPLEMENTED. PATIENT TURNED AND REPOSITIONED EVERY 2 HOURS. KEPT CLEAN AND DRY THROUGHOUT SHIFT. ENDORSED TO NEXT SHIFT. [address] WAY CATHETER INTACT WITH CONTINUOS IRRIGATION PER DR ARGUETA'S ORDERS. CHECK INTAKE AND OUTPUT TAB URINE STILL BRIGHT RED DRAINING FROM CATHETER. DR ARGUETA ALSO AWARE OF THAT
--- NOTE | 2018-01-01 19:50 | NUR ---
MS RN NOTE: PATIENT RESTING IN BED, NO ACUTE DISTRESS NOTED. BREATHING EVEN AND UNLABORED, NO SOB NOTED. IV TO LEFT HAND IN PLACE, INFUSING D5W 100ML/HR. HAGAN CATHETER WITH IRRIGATION IN PLACE, STILL NOTED WITH HEMATURIA. BED LOCKED AND IN LOWEST POSITION, CALL LIGHT IN REACH. WILL CONTINUE TO MONITOR.
[2018-01-01 20:00] VITALS: BP 153/73
[2018-01-01] MEDS: VALPROIC ACID 250 MG/5 ML UDC PO SCH (21:43)
--- NOTE | 2018-01-02 03:00 | NUR ---
MS RN NOTE: PATIENT CONTINUES TO HAVE HEMATURIA, HAGAN CATHETER ALREADY DRAINED [address] HAGAN CONTINUES WITH IRRIGATION BAG. WILL CONTINUE TO MONITOR.
--- NOTE | 2018-01-02 06:20 | NUR ---
MS RN NOTE: PATIENT RESTING IN BED, NO ACUTE DISTRESS NOTED. BREATHING EVEN AND UNLABORED, NO SOB NOTED. IV TO LEFT HAND IN PLACE, INFUSING D5W 100ML/HR. HAGAN CATHETER WITH IRRIGATION IN PLACE, STILL NOTED WITH HEMATURIA DRAINED 6400ML. BED LOCKED AND IN LOWEST POSITION, CALL LIGHT IN REACH. WILL ENDORSE TO DAY NURSE TO CONTINUE WITH PLAN OF CARE.
[2018-01-02 07:20] LABS: BASOPHILS % (AUTO) 0.4 % (0.0-2.0); EOSINOPHILS % (AUTO) 5.2 % (0.0-6.0); HEMATOCRIT 21 % (39-51); HEMOGLOBIN 7.1 g/dL (13.5-17.5); LYMPHOCYTES # (AUTO) 1.2 /CMM (0.8-4.8); LYMPHOCYTES % (AUTO) 17.5 % (20.0-44.0); MEAN CORPUSCULAR HGB CONC 33 g/dl (31.0-36.0); MEAN CORPUSCULAR VOLUME 91 fL (80-96); MONOCYTES # (AUTO) 0.7 /CMM (0.1-1.30); MONOCYTES % (AUTO) 10.1 % (2.0-12.0); NEUTROPHILS # (AUTO) 4.6 /CMM (1.8-8.9); NEUTROPHILS % (AUTO) 66.8 % (43.0-81.0); PLATELET COUNT (AUTO) 261 /CMM (150-450); RED BLOOD CELL COUNT(AUTO) 2.33 MIL/uL (4.5-6.0); WHITE BLOOD COUNT (AUTO) 6.9 K/uL (4.3-11.0)
--- NOTE | 2018-01-02 07:30 | NUR ---
PT RECEIVED RESTING COMFORTABLY IN BED WITH EYES CLOSED. NO S/S OR C/O PAIN OR DISTRESS NOTED. SIDE RAILS UP X2, CALL LIGHT LEFT WITHIN REACH. WILL CONTINUE PLAN OF CARE.
[2018-01-02 07:43] LABS: CALCIUM, SERUM 7.5 mg/dL (8.5-10.1); CARBON DIOXIDE 28 mmol/L (21-32); CHLORIDE 108 mmol/L (98-107); GLUCOSE 104 mg/dL (74-106); MAGNESIUM 1.8 mg/dL (1.8-2.4); PHOSPHORUS 2.5 mg/dL (2.5-4.9); SODIUM SERUM 142 mmol/L (136-145); UREA NITROGEN, BLOOD 13 mg/dL (7-18)
[2018-01-02] MEDS: VENLAFAXINE XR 75 MG CAP.SR.24H PO SCH (08:30)
[2018-01-02] MEDS: VALPROIC ACID 250 MG/5 ML UDC PO SCH ×2 (08:37→21:35)
[2018-01-02] MEDS: ASCORBIC ACID 500 MG TABLET PO SCH (08:38)
[2018-01-02] MEDS: OLANZAPINE 2.5 MG TABLET PO SCH ×3 (08:38→17:51)
[2018-01-02] MEDS: THIAMINE HCL 100 MG TABLET PO SCH (08:38)
[2018-01-02] MEDS: AMIODARONE HCL 200 MG TABLET PO SCH (08:39)
[2018-01-02] MEDS: MULTIVIT, IRON, MIN NO. 8, FA 1 TAB PO SCH (08:40)
[2018-01-02] MEDS: ENSURE ENLIVE CHOC 237 ML CAN PO SCH ×3 (08:41→17:51)
[2018-01-02] MEDS: NEOMY SULF/BACITRAC ZN/POLY 15 GM TUBE TP SCH (08:41)
[2018-01-02 08:44] VITALS: BP 147/78
[2018-01-02] MEDS: CEFTRIAXONE 1 G in IV D5W 50 ML IV SCH (13:32)
[2018-01-02 16:23] VITALS: BP 147/72
[2018-01-02 16:26] VITALS: BP 147/72
--- NOTE | 2018-01-02 18:31 | NUR ---
CHANGE OF SHIFT REPORT PT RESTING COMFORTABLY IN BED. NO S/S OR C/O PAIN OR DISTRESS NOTED. SIDE RAILS UP X2, CALL LIGHT LEFT WITHIN REACH. PT KEPT CLEAN, DRY, AND COMFORTABLE. NO SIGNIFICANT CHANGES SINCE PREVIOUS SHIFT. WILL GIVE REPORT TO DEJAH MALDONADO.
--- NOTE | 2018-01-02 19:30 | NUR ---
RECEIVED PATIENT IN BED AWAKE, OA X 1, VERBALLY RESPONSIVE WITH GARBLED SPEECH. NO ACUTE DISTRESS NOTED. NO SIGNS OF PAIN NOTED. IV SITE PATENT, INTACT; IVF INFUSING ORDERED. HAGAN CATH PATENT, INTACT; DRAINING PINK-TINGED URINE. BLADDER IRRIGATION ONGOING. ON LOW BED WITH BILATERAL UPPER SIDE RAILS UP. CALL BUENO WITHIN EASY REACH. WILL CONTINUE TO MONITOR.
[2018-01-02 19:35] VITALS: BP 145/74
[2018-01-02 20:00] VITALS: BP 145/74
[2018-01-02] MEDS: IV D5W 1,000 ML IV PRN (23:24)
[2018-01-03] MEDS: IV D5W 1,000 ML IV PRN (05:37)
--- NOTE | 2018-01-03 06:18 | NUR ---
PATIENT ASLEEP, EASILY AROUSABLE. RESPIRATIONS EVEN. NO SIGNS OF PAIN NOTED. DUE MEDS GIVEN WITH NO ASE NOTED. IVF INFUSING ORDERED. BLADDER IRRIGATION ONGOING; RESULTING IN PINK-TINGED URINE. NEEDS ATTENDED. KEPT CLEAN, DRY, AND COMFORTABLE. SAFETY PRECAUTIONS AND COMFORT MEASURES IN PLACE. WILL GIVE REPORT TO DAY SHIFT FOR CONTINUITY OF CARE.
--- NOTE | 2018-01-03 07:45 | NUR ---
RN NOTES PATIENT ASLEEP, EASILY AROUSABLE. RESPIRATIONS EVEN. NO SIGNS OF PAIN NOTED. IVF INFUSING ORDERED. BLADDER IRRIGATION ONGOING; RESULTING IN PINK-TINGED URINE. NEEDS ATTENDED. KEPT CLEAN, DRY, AND COMFORTABLE. SAFETY PRECAUTIONS AND COMFORT MEASURES IN PLACE. WILL CONTINUE TO MONITOR
[2018-01-03 08:00] VITALS: BP 153/79
[2018-01-03] MEDS: ENSURE ENLIVE CHOC 237 ML CAN PO SCH ×3 (08:00→17:00)
[2018-01-03] MEDS: AMIODARONE HCL 200 MG TABLET PO SCH (08:34)
[2018-01-03] MEDS: VENLAFAXINE XR 75 MG CAP.SR.24H PO SCH (08:34)
[2018-01-03] MEDS: MULTIVIT, IRON, MIN NO. 8, FA 1 TAB PO SCH (08:34)
[2018-01-03] MEDS: OLANZAPINE 2.5 MG TABLET PO SCH ×3 (08:34→17:54)
[2018-01-03] MEDS: THIAMINE HCL 100 MG TABLET PO SCH (08:35)
[2018-01-03] MEDS: NEOMY SULF/BACITRAC ZN/POLY 15 GM TUBE TP SCH (08:35)
[2018-01-03] MEDS: VALPROIC ACID 250 MG/5 ML UDC PO SCH ×2 (08:35→20:59)
[2018-01-03] MEDS: ASCORBIC ACID 500 MG TABLET PO SCH (08:35)
--- NOTE | 2018-01-03 11:30 | NUR ---
RN NOTES PT NOTED WITH CATHETER LEAKAGE DR. ARGUETA MADE AWARE PER INSTRUMENTATION CONTROLS ENGINEER, REMOVE HAGAN CATHETER AND CONTINUE TO MONITOR
[2018-01-03 12:00] VITALS: BP 137/87
[2018-01-03] MEDS: CEFTRIAXONE 1 G in IV D5W 50 ML IV SCH (14:00)
--- NOTE | 2018-01-03 16:00 | NUR ---
RN NOTES CHECKED RESIDUAL WITH BLADDER SCANNER NOTED WITH >784ML MADE DR. ARGUETA SALT REFINER INSERT CATHETER AND CONTINUE TO MONITOR, TOLERATED PROCEDURE WELL NOTED WITH OJ URINE, PER DR ARGUETA CONTINUE TO MONITOR
--- NOTE | 2018-01-03 19:30 | NUR ---
RECEIVED PATIENT IN BED AWAKE, AO X 1, VERBALLY RESPONSIVE WITH GARBLED SPEECH. NO ACUTE DISTRESS NOTED. NO SIGNS OF PAIN NOTED. IV SITE PATENT, INTACT; FLUSHED. HAGAN CATH PATENT, INTACT; DRAINING OJ-COLORED URINE. ON LOW BED WITH BILATERAL UPPER SIDE RAILS UP. CALL BUENO WITHIN EASY REACH. WILL CONTINUE TO MONITOR.
--- NOTE | 2018-01-03 19:35 | NUR ---
RN NOTES PATIENT ASLEEP, EASILY AROUSABLE. RESPIRATIONS EVEN. NO SIGNS OF PAIN NOTED. IV ACCESS PATENT AND INTACT NO REDNESS OR INFILTRATION NOTED. HAGAN CATHETER IN PLACE INTACT AND DRAINING OJ URINE. NEEDS ATTENDED. KEPT CLEAN, DRY, AND COMFORTABLE. SAFETY PRECAUTIONS AND COMFORT MEASURES IN PLACE. ENDORSED TO NEXT SHIFT FOR CONTINUITY OF CARE
[2018-01-03 20:00] VITALS: BP 145/70
[2018-01-03 20:18] VITALS: BP 145/70
[2018-01-04 05:09] LABS: BASOPHILS % (AUTO) 0.6 % (0.0-2.0); EOSINOPHILS % (AUTO) 9.8 % (0.0-6.0); HEMATOCRIT 22 % (39-51); HEMOGLOBIN 7.6 g/dL (13.5-17.5); LYMPHOCYTES # (AUTO) 1.2 /CMM (0.8-4.8); LYMPHOCYTES % (AUTO) 19.5 % (20.0-44.0); MEAN CORPUSCULAR HGB CONC 34 g/dl (31.0-36.0); MEAN CORPUSCULAR VOLUME 92 fL (80-96); MONOCYTES # (AUTO) 0.5 /CMM (0.1-1.30); MONOCYTES % (AUTO) 8.5 % (2.0-12.0); NEUTROPHILS # (AUTO) 3.7 /CMM (1.8-8.9); NEUTROPHILS % (AUTO) 61.6 % (43.0-81.0); PLATELET COUNT (AUTO) 298 /CMM (150-450); RDW COEFFICIENT OF VARIATION 15.8 (11.5-15.0); RED BLOOD CELL COUNT(AUTO) 2.44 MIL/uL (4.5-6.0)
[2018-01-04 05:40] LABS: ALANINE AMINOTRANSFERASE 13 U/L (12-78); ALBUMIN 2.1 g/dL (3.4-5.0); ALKALINE PHOSPHATASE 60 U/L (46-116); ASPARTATE AMINOTRANSFERASE 16 U/L (15-37); BILIRUBIN,TOTAL 0.4 mg/dL (0.2-1.0); CALCIUM, SERUM 8.1 mg/dL (8.5-10.1); CARBON DIOXIDE 28 mmol/L (21-32); CHLORIDE 105 mmol/L (98-107); CREATININE 1.2 mg/dL (0.6-1.3); GLUCOSE 82 mg/dL (74-106); MAGNESIUM 2.1 mg/dL (1.8-2.4); PHOSPHORUS 2.6 mg/dL (2.5-4.9); POTASSIUM 3.8 mmol/L (3.5-5.1); SODIUM SERUM 140 mmol/L (136-145); TOTAL PROTEIN, SERUM 5.7 g/dL (6.4-8.2); UREA NITROGEN, BLOOD 11 mg/dL (7-18)
--- NOTE | 2018-01-04 06:20 | NUR ---
RICKEY BARN MANAGER MADE AWARE OF PATIENT'S HEMATURIA (CLEAR RED URINE, NO CLOTS). PER BARN MANAGER, MONITOR OUTPUT.
--- NOTE | 2018-01-04 06:50 | NUR ---
PATIENT ASLEEP, EASILY AROUSABLE. RESPIRATIONS EVEN. NO SIGNS OF PAIN NOTED. DUE MED GIVEN ORDERED. NEEDS ATTENDED. KEPT CLEAN, DRY, AND COMFORTABLE. SAFETY PRECAUTIONS AND COMFORT MEASURES IN PLACE. WILL GIVE REPORT TO DAY SHIFT FOR CONTINUITY OF CARE.
--- NOTE | 2018-01-04 07:24 | NUR ---
MS RN OPENING NOTES RECEIVED PATIENT ASLEEP IN BED, EASILY AWAKENS. HOB ELEVATED. ON SUPPLEMENTAL 02 VIA N/C @ 2LPM, BREATHING EVEN AND UNLABORED. IV ACCESS ON RFA #22G INTACT AND PATENT. HAGAN IN PLACE AND NOTED WITH CLEAR RED WITH NO CLOTS URINE (HEMATURIA) AT BEDSIDE URINARY BAG, WAS ENDORSED THAT MONOTYPE OPERATOR JOYCE AWARE AND TO CONTINUE MONITOR OUTPUT. SAFETY MEASURES IN PLACE. BED LOW/LOCKED WITH SIDE RAILS UP X2. CALL LIGHT WITHIN REACH. WILL CONTINUE TO MONITOR PT ACCORDINGLY.
[2018-01-04] MEDS: ENSURE ENLIVE CHOC 237 ML CAN PO SCH ×3 (07:57→17:20)
[2018-01-04 08:11] VITALS: BP 139/67
[2018-01-04] MEDS: VENLAFAXINE XR 75 MG CAP.SR.24H PO SCH (08:17)
[2018-01-04] MEDS: VALPROIC ACID 250 MG/5 ML UDC PO SCH ×2 (08:17→20:39)
[2018-01-04] MEDS: ASCORBIC ACID 500 MG TABLET PO SCH (08:17)
[2018-01-04] MEDS: MULTIVIT, IRON, MIN NO. 8, FA 1 TAB PO SCH (08:17)
[2018-01-04] MEDS: THIAMINE HCL 100 MG TABLET PO SCH (08:17)
[2018-01-04] MEDS: OLANZAPINE 2.5 MG TABLET PO SCH ×3 (08:17→17:20)
[2018-01-04] MEDS: NEOMY SULF/BACITRAC ZN/POLY 15 GM TUBE TP SCH (08:19)
[2018-01-04] MEDS: AMIODARONE HCL 200 MG TABLET PO SCH (08:19)
--- NOTE | 2018-01-04 11:50 | NUR ---
RN NOTES RECEIVED CALL FROM DR HANNON TO CHANGE ZYPREXA 2.5 MG TID TO 1.25MG TID, SAME TO PUT ORDER OF ZYPREXA 2.5 MG Q 6HRS WITH MAXIMUM OF 2 TABS A DAY ONLY ONCE PATIENT GOES FOR DISCHARGE. WILL CONTINUE TO MONITOR
[2018-01-04] MEDS ORDERED: OLANZAPINE 2.5 MG TABLET PO PRN (12:30)
[2018-01-04] MEDS: CEFTRIAXONE 1 G in IV D5W 50 ML IV SCH (14:29)
[2018-01-04 16:00] VITALS: BP 155/77
[2018-01-04] MEDS ORDERED: VENL75CA56 PO (16:05)
[2018-01-04] MEDS ORDERED: VALP250S22 PO (16:05)
[2018-01-04] MEDS ORDERED: OLAN2.5T3 PO ×2 (16:05)
--- NOTE | 2018-01-04 18:23 | NUR ---
RN NOTES PT NOTED WITH BP OF 164/79MMHG, PRN HYDRALAZINE 25MP PO GIVEN ORDERED. WILL CONTINUE TO MONITOR.
--- NOTE | 2018-01-04 19:00 | NUR ---
MS RN NOTES RECEIVE PT IN BED A/O X 1, CONFUSED, GARBLED SPEECH. NO S/S OF DISTRESS, SAFETY MEASURES IN PLACE, CALL LIGHT WITHIN REACH, WILL CONTINUE TO MONITOR
--- NOTE | 2018-01-04 19:32 | NUR ---
MS RN CLOSING NOTES PATIENT IN BED AWAKE IN NO ACUTE SIGNS OF DISTRESS. HOB ELEVATED. A/O X1, CONFUSED ON AND OFF DURING THE DAY. ON 02 VIA N/C @ 2LPM, BREATHING EVEN AND UNLABORED. IV ACCESS ON RFA #22G INTACT AND PATENT. HAGAN IN PLACE, HEMATURIA CLEARING, HAGAN CARE DONE. SAFETY MEASURES IN PLACE KEPT IN PLACE. BED LOW/LOCKED WITH SIDE RAILS UP X2. CALL LIGHT WITHIN REACH. ALL NEEDS AND CARE ATTENDED WELL. ENDORSED TO PRE K SPECIAL EDUCATION TEACHER NURSE THAT PT IS FOR DISCHARGE TO BOARD AND CARE PER SAVANNAH THOMPSON. .
[2018-01-04 19:51] VITALS: BP 150/69
[2018-01-04 20:00] VITALS: BP 150/69
--- NOTE | 2018-01-04 22:10 | NUR ---
PATIENT DISCHARGE PATIENT LEFT VIA [facility]BULANZ WITH 2 EMT VIA [facility] AT 2207, PATIENT ON STABLE CONDITION NO S/S OF DISTRESS NOTED, ON 2LPM VIA OR 02 SAT AT 98% VS STABLE, HEALTH EDUCATION AND EXIT CARE WAS PROVIDED, EDUCATION ABOUT DISEASE AND RISKS AND BENEFITS FOLLOW UP CARE PROVIDED, DOCUMENTS WAS PROVIDED TO THE EMT. CONTINUE MEDICATION PRESCRIPTION WAS PROVIDED. IV SITE WAS REMOVED WITH MINIMAL BLEEDING, APPLIED CLEAN DRESSING FOR PRESSURE AND KEPT CLEAN AND DRY. TOLERATED PROCEDURE WELL. PT NO BELONGINGS.
== END 2018-01-04 22:07 | disposition home or self-care (01) | DRG 682 ==
LOC: ER 15:18 → MEDSG2 17:07
PROVIDERS: ADMIT Internal Medicine; ATTEND Internal Medicine
DX: N17.0 Acute kidney failure with tubular necrosis (principal); G93.41 Metabolic encephalopathy; E43 Unspecified severe protein-calorie malnutrition; E87.0 Hyperosmolality and hypernatremia; E87.2 Acidosis; E87.5 Hyperkalemia; R13.10 Dysphagia, unspecified; E83.39 Other disorders of phosphorus metabolism; I48.91 Unspecified atrial fibrillation; E66.01 Morbid (severe) obesity due to excess calories; I13.0 Hypertensive heart and chronic kidney disease with heart failure and stage 1 through stage 4 chronic kidney disease, or unspecified chronic kidney disease; I50.9 Heart failure, unspecified; E83.51 Hypocalcemia; E86.0 Dehydration; D63.8 Anemia in other chronic diseases classified elsewhere; F03.90 Unspecified dementia, unspecified severity, without behavioral disturbance, psychotic disturbance, mood disturbance, and anxiety; Z87.01 Personal history of pneumonia (recurrent); Z79.82 Long term (current) use of aspirin; Z66 Do not resuscitate; I25.2 Old myocardial infarction; Z85.830 Personal history of malignant neoplasm of bone; Z85.828 Personal history of other malignant neoplasm of skin; Z79.899 Other long term (current) drug therapy; R62.7 Adult failure to thrive; L08.9 Local infection of the skin and subcutaneous tissue, unspecified; E78.5 Hyperlipidemia, unspecified; F09 Unspecified mental disorder due to known physiological condition; F32.9 Major depressive disorder, single episode, unspecified; I25.10 Atherosclerotic heart disease of native coronary artery without angina pectoris; F39 Unspecified mood [affective] disorder; E03.9 Hypothyroidism, unspecified; N18.9 Chronic kidney disease, unspecified; M19.90 Unspecified osteoarthritis, unspecified site; R31.9 Hematuria, unspecified; K59.00 Constipation, unspecified; Z68.29 Body mass index [BMI] 29.0-29.9, adult; M50.30 Other cervical disc degeneration, unspecified cervical region; I70.0 Atherosclerosis of aorta; R45.1 Restlessness and agitation
CPT/HCPCS: 36415; 71045-TC; 76770-TC; 80048-TC; 80053-TC; 81000-TC; 83735-TC; 84100-TC; 85025-TC; 87081-TC; 93307-TC; A4217; A4606; J0696; J2060; J2270; J2405; J3411; J3475; J3480; J3490; J7030; J7060; J7070; Z7610